=== PATIENT | male | born 1950 | race Caucasian/White ===

== ENCOUNTER 2018-01-29 08:12 | Emergency (ER) | payer OTHER, MEDICAID ==
[~2018-01-29] VITALS: Ht 165.1 cm; Wt 61.2 kg
[2018-01-29 08:12] VITALS: BP_SYST 160
[2018-01-29 08:30] VITALS: BP_SYST 148
[2018-01-29] MEDS ORDERED: cloNIDine HCL 0.1 MG TABLET PO ONE (08:30)
[2018-01-29] MEDS ORDERED: KETOROLAC TROMETHAMINE 30 MG VIAL ONE (15:04)
== END 2018-01-29 08:30 ==
LOC: SED 08:12
DX: I16.0 Hypertensive urgency (principal)
CPT/HCPCS: 99283; J1885

== ENCOUNTER 2018-01-29 14:21 | Emergency (ER) | payer OTHER, MEDICAID ==
[~2018-01-29] VITALS: Ht 165.1 cm; Wt 61.2 kg
[2018-01-29 14:21] VITALS: BP_SYST 179
[2018-01-29] MEDS ORDERED: KETOROLAC TROMETHAMINE 30 MG VIAL IM ONE ×2 (14:45)
[2018-01-29 15:20] VITALS: BP_SYST 168
== END 2018-01-29 15:20 ==
LOC: SED 14:21
DX: S63.610A Unspecified sprain of right index finger, initial encounter (principal); S20.211A Contusion of right front wall of thorax, initial encounter; I10 Essential (primary) hypertension; Y04.0XXA Assault by unarmed brawl or fight, initial encounter; Y93.89 Activity, other specified; Y92.009 Unspecified place in unspecified non-institutional (private) residence as the place of occurrence of the external cause; Y99.8 Other external cause status
CPT/HCPCS: 71100; 96372; 99284; J1885